=== PATIENT | male | born 1955 | race Hispanic/Latino ===

== ENCOUNTER 2017-08-24 12:44 | Emergency (ER) | payer MEDICAID ==
[2017-08-24] MEDS ORDERED: DEXAMETHASONE SOD PHOSPHATE 10MG/ML 1ML VIAL ONE ×2 (13:02→14:32)
[2017-08-24 13:41] LABS: BASOPHILS % (AUTO) 0.7 % (0.0-5.0); HEMATOCRIT 34.8 % (42-54); MEAN CORPUSCULAR HEMOGLOBIN 30.8 pg (27.0-33.0); MEAN CORPUSCULAR HGB CONC 34.8 g/dL (32.0-36.0); MEAN CORPUSCULAR VOLUME 88.5 fL (79-99); MONOCYTES % (AUTO) 7.1 % (3.0-13.0); NEUTROPHILS % (AUTO) 68.2 % (40.0-77.0); PLATELET COUNT (AUTO) 211 K/uL (130-400); RED BLOOD CELL COUNT(AUTO) 3.94 MIL/uL (4.50-6.20); RED CELL DISTRIBUTION WIDTH 13.4 % (11.0-15.5)
[2017-08-24] MEDS ORDERED: IPRATROPIUM/ALBUTEROL SULFATE 3 ML SOLUTION IH ONE (13:48)
[2017-08-24 13:50] LABS: CREATININE 1.3 mg/dL (0.5-1.5); POTASSIUM 3.5 mmol/L (3.5-5.1)
[2017-08-24 14:00] LABS: ALBUMIN 2.9 g/dL (3.5-5.0); BILIRUBIN,DIRECT 0.1 mg/dL (0.0-0.3); BILIRUBIN,TOTAL 0.3 mg/dL (0.2-1.0); TOTAL PROTEIN, SERUM 5.9 g/dL (6.0-8.3)
[2017-08-24 14:23] LABS: B-TYPE NATRIURETIC PEPTIDE 41 pg/mL (0-100)
== END 2017-08-24 16:04 | disposition home or self-care (01) ==
LOC: EDH 12:44
DX: J45.901 Unspecified asthma with (acute) exacerbation (principal)
CPT/HCPCS: 36415; 71046; 80048; 80076; 82550; 83880; 84484; 85025; 87804 ×2; 93005; 94640; 96374; 99285; J1100

== ENCOUNTER 2017-12-17 23:17 | Emergency (ER) | payer MEDICAID ==
[2017-12-17] MEDS ORDERED: TETANUS/DIPHTHERIA TOXOID [ADULT] 0.5 ML VIAL IM ONE (23:42)
[2017-12-18] MEDS ORDERED: ONDANSETRON HCL 4 MG/2 ML VIAL ONE (00:45)
[2017-12-18] MEDS ORDERED: MORPHINE SULFATE 4 MG/1ML SYG ONE (00:47)
== END 2017-12-18 00:57 | disposition home or self-care (01) ==
LOC: EDH 23:17
DX: S61.217A Laceration without foreign body of left little finger without damage to nail, initial encounter (principal); I10 Essential (primary) hypertension; E78.5 Hyperlipidemia, unspecified; W25.XXXA Contact with sharp glass, initial encounter; Y93.89 Activity, other specified; Y92.89 Other specified places as the place of occurrence of the external cause; Y99.8 Other external cause status
CPT/HCPCS: 12052; 90471; 90714; 99284; J2270; J2405

== ENCOUNTER 2019-12-21 10:32 | Emergency (ER) | payer MEDICARE ==
[~2019-12-21 10:32] MED LIST: CEFD300C3 PO; CETI10TA57 PO; FURO40TA5 PO; IBUP-2077 PO; METH10TA7 PO; METO25 PO; OMEP40CA13 PO; SIMV-46 PO
[2019-12-21] MEDS ORDERED: KETOROLAC TROMETHAMINE 60 MG/2 ML VIAL ONE (10:58)
== END 2019-12-21 15:46 | disposition home or self-care (01) ==
LOC: EDH 10:32
DX: S70.02XA Contusion of left hip, initial encounter (principal); J45.909 Unspecified asthma, uncomplicated; E78.5 Hyperlipidemia, unspecified; I10 Essential (primary) hypertension; W18.39XA Other fall on same level, initial encounter; Y93.01 Activity, walking, marching and hiking; Y92.89 Other specified places as the place of occurrence of the external cause; Y99.8 Other external cause status
CPT/HCPCS: 73502; 96372; 99283; J1885

== ENCOUNTER 2020-01-02 11:34 | Emergency (ER) | payer MEDICARE ==
[2020-01-02 13:15] LABS: RED CELL DISTRIBUTION WIDTH 13.3 % (11.0-15.5)
[2020-01-02 13:30] LABS: INR 0.89 (0.85-1.15); PARTIAL THROMBOPLASTIN TIME 21.5 SEC (26.3-35.5); PROTHROMBIN TIME 9.7 SEC (9.6-11.6)
[2020-01-02 13:36] LABS: ALBUMIN 3.3 g/dL (3.5-5.0); BILIRUBIN,TOTAL 0.5 mg/dL (0.2-1.0); CREATININE 1.6 mg/dL (0.5-1.5); TOTAL PROTEIN, SERUM 6.3 g/dL (6.0-8.3)
[2020-01-02 13:38] LABS: B-TYPE NATRIURETIC PEPTIDE 70 pg/mL (0-100)
[2020-01-02 13:42] LABS: BASOPHILS % (AUTO) 0.5 % (0.0-5.0); HEMATOCRIT 29.9 % (42-54); LYMPHOCYTES % (AUTO) 17.4 % (21.0-51.0); MEAN CORPUSCULAR HEMOGLOBIN 30.8 pg (27.0-33.0); MEAN CORPUSCULAR HGB CONC 33.1 g/dL (32.0-36.0); MEAN CORPUSCULAR VOLUME 93.1 fL (79-99); MONOCYTES % (AUTO) 7.1 % (3.0-13.0); NEUTROPHILS % (AUTO) 71.7 % (40.0-77.0); PLATELET COUNT (AUTO) 233 K/uL (130-400); RED BLOOD CELL COUNT(AUTO) 3.21 MIL/uL (4.50-6.20); WHITE BLOOD COUNT (AUTO) 6.6 K/uL (4.8-10.8)
== END 2020-01-02 15:05 | disposition left against medical advice (07) ==
LOC: EDH 11:34
DX: S70.02XA Contusion of left hip, initial encounter (principal); S80.12XA Contusion of left lower leg, initial encounter; I21.4 Non-ST elevation (NSTEMI) myocardial infarction; E78.5 Hyperlipidemia, unspecified; I10 Essential (primary) hypertension; J45.909 Unspecified asthma, uncomplicated; E07.9 Disorder of thyroid, unspecified; Z87.891 Personal history of nicotine dependence; W18.39XA Other fall on same level, initial encounter; Y93.89 Activity, other specified; Y92.89 Other specified places as the place of occurrence of the external cause; Y99.8 Other external cause status
CPT/HCPCS: 36415; 71045; 72170; 73552; 73562; 73590; 73630; 80053; 82550; 83880; 84484; 85025; 85610; 85730; 93005

== ENCOUNTER 2020-01-21 16:14 | Observation (INO) | payer MEDICARE ==
[~2020-01-21] VITALS: Ht 157.5 cm; Wt 71.7 kg
[2020-01-21] MEDS ORDERED: ACETAMINOPHEN 325 MG TAB ONE (17:39)
[2020-01-21] MEDS ORDERED: ASPIRIN 325 MG TABLET ONE (18:50)
[2020-01-21] MEDS ORDERED: AZITHROMYCIN 250 MG TABLET PO ONE (18:50)
[2020-01-21] MEDS ORDERED: SODIUM CHLORIDE 0.9% 10 ML VIAL IVP PRN (19:45)
[2020-01-21] MEDS ORDERED: PHARMACY COMMUNICATION MISC SCH ×2 (19:45)
[2020-01-21] MEDS ORDERED: MORPHINE SULFATE 2 MG/ML 1ML SYG IVP PRN (19:45)
[2020-01-21] MEDS ORDERED: ONDANSETRON HCL 4 MG/2 ML VIAL IVP PRN (19:45)
[2020-01-21] MEDS ORDERED: CEFTRIAXONE SODIUM 1 GM IVP SCH (20:00)
[2020-01-21] MEDS ORDERED: PREDNISONE 10 MG TABLET ONE (20:37)
[2020-01-21] MEDS ORDERED: ATORVASTATIN CALCIUM 40 MG TABLET ONE (20:37)
[2020-01-21] MEDS ORDERED: METOPROLOL TARTRATE 50 MG TAB ONE (20:37)
[2020-01-21] MEDS ORDERED: CEFTRIAXONE SODIUM 1 GM ONE (20:59)
[2020-01-21] MEDS ORDERED: SODIUM CHLORIDE 0.9% 50 ML IV ONE (21:00)
[2020-01-21] MEDS ORDERED: METOPROLOL TARTRATE 25 MG TAB PO SCH (21:00)
[2020-01-22] MEDS ORDERED: ATORVASTATIN CALCIUM 40 MG TABLET PO SCH (09:00)
[2020-01-22] MEDS ORDERED: ASPIRIN 81MG TAB.CHEW PO SCH (09:00)
[2020-01-22] MEDS ORDERED: METOPROLOL TARTRATE 25 MG TAB ONE (11:36)
[2020-01-22] MEDS ORDERED: ASPIRIN 81MG TAB.CHEW ONE (11:36)
[2020-01-22] MEDS ORDERED: PREDNISONE 10 MG TABLET ONE (11:37)
[2020-01-22] MEDS ORDERED: AZITHROMYCIN 250 MG TABLET PO ONE (17:47)
[2020-01-22] MEDS ORDERED: AZITHROMYCIN 250 MG TABLET PO SCH (18:00)
[2020-01-22] MEDS ORDERED: ATORVASTATIN CALCIUM 40 MG TABLET ONE (20:11)
[2020-01-22] MEDS ORDERED: LIDOCAINE HCL-MPF 1% 2ML VIAL ONE (20:12)
[2020-01-22] MEDS ORDERED: CEFTRIAXONE SODIUM 1 GM ONE (20:12)
[2020-01-23] MEDS ORDERED: PREDNISONE 10 MG TABLET ONE (08:44)
[2020-01-23] MEDS ORDERED: METOPROLOL TARTRATE 25 MG TAB ONE (08:44)
[2020-01-23] MEDS ORDERED: ASPIRIN 81MG TAB.CHEW ONE (08:44)
[2020-01-23] MEDS ORDERED: PREDNISONE 1 MG TAB PO SCH (09:00)
[2020-01-23] MEDS ORDERED: PREDNISONE 5 MG TABLET PO SCH (09:00)
--- NOTE | 2020-01-23 11:43 | NUR ---
history of thyroid problems Addendum: 01/23/20 at 1156 by MAURICIO HOPSON RN RN Amended: Links added.
--- NOTE | 2020-01-23 11:45 | NUR ---
uses walker has fall at home Addendum: 01/23/20 at 1156 by MAURICIO HOPSON RN RN Amended: Links added.
[2020-01-23] MEDS ORDERED: ENOXAPARIN SODIUM 80 MG/0.8 ML SQ SCH (12:00)
== END 2020-01-23 12:20 | disposition home or self-care (01) ==
LOC: EDH 16:14 → INTOOBSV 18:38 → EDHIP 18:38
PROVIDERS: ADMIT Internal Medicine Infectious Disease; ATTEND Internal Medicine Infectious Disease
DX: U07.1 COVID-19 (principal); I20.9 Angina pectoris, unspecified; J12.89 Other viral pneumonia; I11.0 Hypertensive heart disease with heart failure; I50.9 Heart failure, unspecified; E78.5 Hyperlipidemia, unspecified; E03.9 Hypothyroidism, unspecified; N28.89 Other specified disorders of kidney and ureter; R53.81 Other malaise; J45.909 Unspecified asthma, uncomplicated; Z79.899 Other long term (current) drug therapy
CPT/HCPCS: 36415 ×2; 71045; 80048; 80053; 82550; 82728; 83735; 84145; 84484 ×3; 85025; 85027; 85378; 85610; 85651; 85730; 86140; 87040 ×2; 93005; 99285; G0378 ×41; J0696 ×2; J3490; J7512 ×5; U0003

== ENCOUNTER 2020-03-24 08:50 | Inpatient (IN) | payer MEDICARE ==
[~2020-03-24] VITALS: Ht 154.9 cm; Wt 67.0 kg
[2020-03-24 09:11] LABS: BASOPHILS % (AUTO) 0.9 % (0.0-5.0); EOSINOPHILS % (AUTO) 4.1 % (0.0-8.0); HEMATOCRIT 35.6 % (42-54); LYMPHOCYTES % (AUTO) 24.4 % (21.0-51.0); MEAN CORPUSCULAR HEMOGLOBIN 31.2 pg (27.0-33.0); MEAN CORPUSCULAR HGB CONC 34.8 g/dL (32.0-36.0); MEAN CORPUSCULAR VOLUME 89.7 fL (79-99); MONOCYTES % (AUTO) 5.8 % (3.0-13.0); NEUTROPHILS % (AUTO) 64.6 % (40.0-77.0); PLATELET COUNT (AUTO) 277 K/uL (130-400); RED BLOOD CELL COUNT(AUTO) 3.97 MIL/uL (4.50-6.20); WHITE BLOOD COUNT (AUTO) 6.6 K/uL (4.8-10.8)
[2020-03-24 09:21] LABS: CREATININE 2.8 mg/dL (0.5-1.5); POTASSIUM 3.3 mmol/L (3.5-5.1)
[2020-03-24 09:25] LABS: INR 0.92 (0.85-1.15); PARTIAL THROMBOPLASTIN TIME 25.8 SEC (26.3-35.5)
[2020-03-24 09:26] LABS: ALBUMIN 3.9 g/dL (3.5-5.0); BILIRUBIN,TOTAL 0.5 mg/dL (0.2-1.0)
[2020-03-24] MEDS ORDERED: NITROGLYCERIN 0.4 MG SL TAB SL ONE (09:37)
[2020-03-24] MEDS ORDERED: ASPIRIN 325 MG TABLET ONE (09:37)
[2020-03-24] MEDS ORDERED: POTASSIUM BICARB/CIT AC 25 MEQ TABLET.EFF ONE (09:50)
[2020-03-24] MEDS ORDERED: SODIUM CHLORIDE 0.9% 500ML 500 ML IV ONE ×2 (09:50→11:15)
[2020-03-24] MEDS ORDERED: MORPHINE SULFATE 4 MG/1ML SYG ONE (12:02)
[2020-03-24] MEDS ORDERED: ONDANSETRON HCL 4 MG/2 ML VIAL IVP PRN (12:15)
[2020-03-24] MEDS ORDERED: HYDRALAZINE HCL 20 MG/ML VIAL IV PRN (12:15)
[2020-03-24] MEDS ORDERED: ALBUTEROL INHALER 90MCG/INH IH PRN (12:45)
[2020-03-24 14:00] VITALS: BP 168/85
[2020-03-24] MEDS: HEPARIN SODIUM 5000UNIT/ML 1ML VIAL SQ SCH ×2 (14:00→21:10)
--- NOTE | 2020-03-24 14:00 | NUR ---
ADMISSION FROM . ER. PER SERVICES OF DR. MADSEN, PT AAO X 3 REVIEW ADMISSION ORDERS , DENIES ANY CHEST PAIN, TELE. MONITOR ON . AND CALL LIGHT IN REACH..
[2020-03-24 15:11] VITALS: BP 168/85
[2020-03-24] MEDS ORDERED: FAMO40TA7 PO (15:11)
[2020-03-24] MEDS ORDERED: LOSA50TA64 PO (15:11)
[2020-03-24] MEDS ORDERED: LORA10TA7 PO (15:11)
[2020-03-24] MEDS ORDERED: BENZ-51 PO (15:11)
[2020-03-24] MEDS ORDERED: METH10TA7 PO (15:11)
[2020-03-24] MEDS ORDERED: IBUP-2076 PO (15:11)
[2020-03-24] MEDS ORDERED: TIOT4MIS5 IH (15:12)
[2020-03-24] MEDS ORDERED: FURO40TA5 PO (15:12)
[2020-03-24] MEDS ORDERED: FLUT8AER3 IH (15:12)
[2020-03-24 16:00] VITALS: BP 153/74
[2020-03-24] MEDS: LACTATED RINGERS 1000ML 1,000 ML IV SCH (18:10)
[2020-03-24 19:39] VITALS: BP 149/87
[2020-03-24] MEDS: FAMOTIDINE 20MG TAB 20 MG TAB PO SCH (21:10)
[2020-03-24] MEDS: MORPHINE SULFATE 4 MG/1ML SYG IV PRN (21:59)
[2020-03-25 00:06] VITALS: BP 164/69
[2020-03-25 04:05] VITALS: BP 121/56
[2020-03-25 04:56] LABS: EOSINOPHILS % (AUTO) 4.1 % (0.0-8.0); HEMATOCRIT 33.8 % (42-54); LYMPHOCYTES % (AUTO) 26.1 % (21.0-51.0); MEAN CORPUSCULAR HGB CONC 33.4 g/dL (32.0-36.0); MEAN CORPUSCULAR VOLUME 92.6 fL (79-99); MONOCYTES % (AUTO) 8.7 % (3.0-13.0); NEUTROPHILS % (AUTO) 59.9 % (40.0-77.0); PLATELET COUNT (AUTO) 244 K/uL (130-400); RED BLOOD CELL COUNT(AUTO) 3.65 MIL/uL (4.50-6.20); RED CELL DISTRIBUTION WIDTH 13.3 % (11.0-15.5); WHITE BLOOD COUNT (AUTO) 6.3 K/uL (4.8-10.8)
[2020-03-25 05:12] LABS: CREATININE 1.7 mg/dL (0.5-1.5); POTASSIUM 3.8 mmol/L (3.5-5.1)
[2020-03-25 08:00] VITALS: BP 143/65
[2020-03-25] MEDS: LACTATED RINGERS 1000ML 1,000 ML IV SCH (09:00)
[2020-03-25] MEDS: FAMOTIDINE 20MG TAB 20 MG TAB PO SCH ×2 (09:51→19:50)
[2020-03-25] MEDS: HEPARIN SODIUM 5000UNIT/ML 1ML VIAL SQ SCH ×3 (09:53→19:51)
[2020-03-25 11:32] VITALS: BP 128/53
[2020-03-25 16:00] VITALS: BP 151/62
[2020-03-25 18:13] LABS: APPEARANCE,URINE Clear (CLEAR); BILIRUBIN,URINE Negative (NEGATIVE); COLOR,URINE Yellow (YELLOW); GLUCOSE, URINE (UA) Negative (NEGATIVE); KETONES,URINE Negative (NEGATIVE); LEUKOCYTE ESTERASE ,URINE Negative (NEGATIVE); NITRATE,URINE Negative (NEGATIVE); OCCULT BLOOD,URINE Negative (NEGATIVE); PROTEIN,URINE POS 1+ mg/dL (NEGATIVE); UROBILINOGEN,URINE 0.2 mg/dL (0.2-1.0)
[2020-03-25 18:29] LABS: BACTERIA,URINE Rare /HPF (None Seen); MUCUS,URINE Few LPF (None Seen); RBC,URINE 0-1 /HPF (0-1); SQUAMOUS EPITHELIAL CELL,UR 0-2 /HPF (0-2)
[2020-03-25] MEDS: MORPHINE SULFATE 4 MG/1ML SYG IV PRN (18:36)
--- NOTE | 2020-03-25 19:50 | NUR ---
MEDS SHIFT ASSESSMENT DONE, PLEASE REFER TO CHART. DUE MEDS ADMINISTERED, TOLERATED WELL. CALL LIGHT WITHIN REACH. WILL MONITOR PT. Addendum: 03/25/20 at 2045 by NATALIE CARTER RN RN Amended: Links added.
[2020-03-25 20:00] VITALS: BP 145/55
--- NOTE | 2020-03-25 20:40 | NUR ---
SANDHYA GUERRA NP FOR HOSPITALIST, MAKING ROUNDS. REFERRED PT'S COUGH AND HOME MEDS. NEW MED ORDERS RECEIVED, PLEASE REFER TO CPOE. WILL MEDICATE PT.
[2020-03-25] MEDS: BENZONATATE 100 MG CAPSULE PO PRN (21:11)
[2020-03-25] MEDS: METHIMAZOLE 10 MG TAB PO SCH (21:11)
--- NOTE | 2020-03-25 22:01 | NUR ---
Patient pending PCR results ;meanwhile his MDI has been given to him by KEY Moss. Addendum: 03/25/20 at 2204 by MARY RAM RT Amended: Links added.
--- NOTE | 2020-03-25 23:03 | NUR ---
CALL PT CALLED AND CLAIMS OF INABILITY TO GO TO SLEEP, ASKING FOR SLEEPING PILL. PAGED SANDHYA GUERRA FOR HOSPITALIST VIA ANSWERING SERVICE. AWAITING CALL BACK.
--- NOTE | 2020-03-25 23:10 | NUR ---
SANDHYA GUERRA CALLED BACK AND REFERRED PT'S REQUEST. NEW MED ORDER GIVEN, PLEASE REFER TO CPOE. WILL MEDICATE PT.
[2020-03-25] MEDS ORDERED: HYDROXYZINE HCL 25 MG TABLET PO PRN (23:15)
[2020-03-25] MEDS: ALBUTEROL SULFATE 0.083% 2.5 MG/3 ML INH IH SCH (23:19)
[2020-03-25] MEDS ORDERED: HYDROXYZINE HCL 25 MG TABLET ONE (23:19)
[2020-03-25] MEDS: IPRATROPIUM 0.5 MG/2.5 ML INH IH SCH (23:19)
[2020-03-26] VITALS: BP_SYST 126; BP_SYST 145; BP_DIAS 64; BP_DIAS 75
--- NOTE | 2020-03-26 01:42 | NUR ---
ROUNDS PT FAIRLY ASLEEP WITH RESPIRATIONS EVEN AND UNLABORED. NO DISTRESS NOTED. KEPT RESTED AND COMFORTABLE. CALL LIGHT WITHIN REACH. WILL MONITOR PT.
[2020-03-26 04:00] VITALS: BP 150/61
[2020-03-26] MEDS: LACTATED RINGERS 1000ML 1,000 ML IV SCH (04:14)
[2020-03-26 05:07] LABS: T4 (THYROXINE) 7.5 ug/dL (4.7-13.3); THYROID STIMULATING HORMONE 0.44 uIU/mL (0.36-3.74)
[2020-03-26] MEDS: BUDESONIDE 0.5 MG/2 ML INH IH SCH ×2 (06:00→18:00)
[2020-03-26] MEDS: IPRATROPIUM 0.5 MG/2.5 ML INH IH SCH ×2 (06:00→12:00)
--- NOTE | 2020-03-26 06:14 | NUR ---
ROUNDS PT RESTING WELL, STILL ASLEEP. NO DISTRESS NOTED. KEPT COMFORTABLE IN BED. FOR MORE CARE.
[2020-03-26 08:00] VITALS: BP 150/72
--- NOTE | 2020-03-26 08:00 | NUR ---
AM SHIFT ASSESSMENT.
[2020-03-26] MEDS: FUROSEMIDE 40 MG TABLET PO SCH (09:26)
[2020-03-26] MEDS: LOSARTAN 50 MG TABLET PO SCH (09:26)
[2020-03-26] MEDS: FAMOTIDINE 20MG TAB 20 MG TAB PO SCH ×2 (09:26→20:49)
[2020-03-26] MEDS: LORATADINE 10 MG TABLET PO SCH (09:26)
[2020-03-26] MEDS: HEPARIN SODIUM 5000UNIT/ML 1ML VIAL SQ SCH ×3 (09:33→20:50)
[2020-03-26] MEDS: MORPHINE SULFATE 4 MG/1ML SYG IV PRN (10:40)
--- NOTE | 2020-03-26 10:40 | NUR ---
MEDICATED FOR PAIN TO LT. UPPER BACK.
[2020-03-26 11:39] VITALS: BP 166/64
[2020-03-26] MEDS: ALBUTEROL SULFATE 0.083% 2.5 MG/3 ML INH IH SCH (12:00)
[2020-03-26 16:00] VITALS: BP 141/60
--- NOTE | 2020-03-26 16:56 | NUR ---
DCP IA done by Matt Kyle RN. As per Matt spoke to daughter on facesheet discussed dc plans. As per daughter pt is independent prior to admission, lives at home alone, daughter lives close by. Pt has a cane. Denies any other equipments/services. Feels safe to go back home, still drives, daughter and son Devan Nascimento able to assist with transportation and needs as necessary. DC plan to home once stable. CM to cont to follow up. Addendum: 03/26/20 at 1658 by BRITTANY PAT LVN CM Amended: Links added.
[2020-03-26] MEDS ORDERED: SIMVASTATIN 10 MG TABLET ONE (19:22)
[2020-03-26 20:00] VITALS: BP 134/56
[2020-03-26] MEDS: SIMVASTATIN 10 MG TABLET PO SCH (20:48)
[2020-03-26] MEDS: METHIMAZOLE 10 MG TAB PO SCH (20:49)
[2020-03-27] VITALS: BP 145/64
[2020-03-27] MEDS: MORPHINE SULFATE 4 MG/1ML SYG IV PRN (02:50)
[2020-03-27 04:00] VITALS: BP 120/66
[2020-03-27 08:32] VITALS: BP 150/72
[2020-03-27] MEDS: FUROSEMIDE 40 MG TABLET PO SCH (10:16)
[2020-03-27] MEDS: LORATADINE 10 MG TABLET PO SCH (10:16)
[2020-03-27] MEDS: FAMOTIDINE 20MG TAB 20 MG TAB PO SCH ×2 (10:17→20:28)
[2020-03-27] MEDS: LOSARTAN 50 MG TABLET PO SCH (10:17)
[2020-03-27] MEDS: HEPARIN SODIUM 5000UNIT/ML 1ML VIAL SQ SCH ×3 (10:55→20:27)
--- NOTE | 2020-03-27 12:02 | NUR ---
DR. YUEN AWARE OF CONSULT ORDERS ENTERED FOR ECHO AND LEXISCAN.
[2020-03-27 12:16] VITALS: BP 158/70
[2020-03-27] MEDS: ASPIRIN 81MG TAB.CHEW PO SCH (16:37)
[2020-03-27 17:41] VITALS: BP 112/59
[2020-03-27 19:27] VITALS: BP 114/54
[2020-03-27] MEDS: SIMVASTATIN 10 MG TABLET PO SCH (20:21)
[2020-03-27] MEDS: METHIMAZOLE 10 MG TAB PO SCH (20:28)
[2020-03-28] VITALS (8 sets, daily range): BP systolic 128–202; BP diastolic 56–82
[2020-03-28 04:03] LABS: BASOPHILS % (AUTO) 0.5 % (0.0-5.0); EOSINOPHILS % (AUTO) 5.9 % (0.0-8.0); HEMATOCRIT 31.8 % (42-54); LYMPHOCYTES % (AUTO) 34.5 % (21.0-51.0); MEAN CORPUSCULAR HEMOGLOBIN 30.5 pg (27.0-33.0); MEAN CORPUSCULAR HGB CONC 33.3 g/dL (32.0-36.0); MEAN CORPUSCULAR VOLUME 91.4 fL (79-99); MONOCYTES % (AUTO) 8.7 % (3.0-13.0); NEUTROPHILS % (AUTO) 50.2 % (40.0-77.0); PLATELET COUNT (AUTO) 218 K/uL (130-400); RED BLOOD CELL COUNT(AUTO) 3.48 MIL/uL (4.50-6.20); RED CELL DISTRIBUTION WIDTH 12.7 % (11.0-15.5); WHITE BLOOD COUNT (AUTO) 4.3 K/uL (4.8-10.8)
[2020-03-28 04:17] LABS: CREATININE 1.6 mg/dL (0.5-1.5)
[2020-03-28] MEDS: MORPHINE SULFATE 4 MG/1ML SYG IV PRN ×2 (06:44→21:04)
[2020-03-28] MEDS: FUROSEMIDE 40 MG TABLET PO SCH (09:23)
[2020-03-28] MEDS: ASPIRIN 81MG TAB.CHEW PO SCH (09:23)
[2020-03-28] MEDS: FAMOTIDINE 20MG TAB 20 MG TAB PO SCH ×2 (09:23→21:08)
[2020-03-28] MEDS: LORATADINE 10 MG TABLET PO SCH (09:23)
[2020-03-28] MEDS: LOSARTAN 50 MG TABLET PO SCH (09:30)
[2020-03-28] MEDS: HEPARIN SODIUM 5000UNIT/ML 1ML VIAL SQ SCH ×3 (09:37→21:14)
--- NOTE | 2020-03-28 12:04 | NUR ---
PT ANXIOUS; REFUSING 2D ECHO MINUTES LATER HE APOLOGIZED STATING THAT NOW HE WANTS IT DONE, 2D NEWS ASSISTANT AWARE. GOT AN ORDER FOR XANAX PO WILL GIVE.
[2020-03-28] MEDS ORDERED: ALPRAZOLAM 0.25 MG TABLET ONE (12:21)
[2020-03-28] MEDS: BENZONATATE 100 MG CAPSULE PO PRN (12:23)
[2020-03-28] MEDS ORDERED: ALPRAZOLAM 0.25 MG TABLET PO ONE (13:20)
[2020-03-28] MEDS ORDERED: REGADENOSON 0.4 MG/5 ML PF SYG IVP SCH (15:30)
[2020-03-28] MEDS: SIMVASTATIN 10 MG TABLET PO SCH (21:08)
[2020-03-28] MEDS: METHIMAZOLE 10 MG TAB PO SCH (21:08)
[2020-03-29 03:55] VITALS: BP 137/59
[2020-03-29] MEDS: BUDESONIDE 0.5 MG/2 ML INH IH SCH (06:00)
[2020-03-29] MEDS: IPRATROPIUM 0.5 MG/2.5 ML INH IH SCH ×2 (06:00→12:00)
[2020-03-29] MEDS: ALBUTEROL SULFATE 0.083% 2.5 MG/3 ML INH IH SCH ×3 (06:00→12:00)
[2020-03-29 08:00] VITALS: BP 144/82
[2020-03-29] MEDS: FAMOTIDINE 20MG TAB 20 MG TAB PO SCH (08:37)
[2020-03-29] MEDS: ASPIRIN 81MG TAB.CHEW PO SCH (08:37)
[2020-03-29] MEDS: LOSARTAN 50 MG TABLET PO SCH (08:37)
[2020-03-29] MEDS: LORATADINE 10 MG TABLET PO SCH (08:37)
[2020-03-29] MEDS: FUROSEMIDE 40 MG TABLET PO SCH (08:37)
[2020-03-29] MEDS: HEPARIN SODIUM 5000UNIT/ML 1ML VIAL SQ SCH (08:42)
[2020-03-29 11:35] VITALS: BP 145/67
[2020-03-29] MEDS ORDERED: ATOR10 PO (11:59)
[2020-03-29] MEDS ORDERED: ASPI-1005 PO (11:59)
[2020-03-29] MEDS: MORPHINE SULFATE 4 MG/1ML SYG IV PRN (12:24)
--- NOTE | 2020-03-29 12:35 | NUR ---
notified cassandra grey gave patient morphine per prn regarding patient had been pacing back and forth c/o sob back pain and anxiety,stated doesn't feel good. 02 sat 96%in ra. also ler her know was anjel pending vqscan but wont be able to be done until 2 days after lexiscan ,per dept. pending call back
[2020-03-29] MEDS ORDERED: ALPRAZOLAM 0.5 MG TABLET PO SCH (12:45)
--- NOTE | 2020-03-29 13:00 | NUR ---
call back from cassandra puente to follow up on message left with cassandra grey. also ler her know on patient c/o of sob,pacing ,anxiety and stating feelings like something stuck in chest per patient and cant cough out ,back pain. alsolet her know there is an order for vqscan but cant be done till 2 days after lexiscan. per filter washer and presser no need for vqscan .new order for xanax x 1 dose ,and to monitor patient before dc home
[2020-03-29] MEDS ORDERED: ALPRAZOLAM 0.5 MG TABLET PO PRN (16:00)
[2020-03-29 16:28] VITALS: BP 159/67
== END 2020-03-29 19:00 | disposition home or self-care (01) | DRG 683 ==
LOC: EDH 08:50 → 3BH 11:58
PROVIDERS: ADMIT Hospitalist; ATTEND Hospitalist
DX: N17.9 Acute kidney failure, unspecified (principal); I25.110 Atherosclerotic heart disease of native coronary artery with unstable angina pectoris; I13.0 Hypertensive heart and chronic kidney disease with heart failure and stage 1 through stage 4 chronic kidney disease, or unspecified chronic kidney disease; I50.30 Unspecified diastolic (congestive) heart failure; E05.90 Thyrotoxicosis, unspecified without thyrotoxic crisis or storm; J40 Bronchitis, not specified as acute or chronic; E78.5 Hyperlipidemia, unspecified; Z20.828 Contact with and (suspected) exposure to other viral communicable diseases; E78.00 Pure hypercholesterolemia, unspecified; N18.9 Chronic kidney disease, unspecified; E11.22 Type 2 diabetes mellitus with diabetic chronic kidney disease; D64.9 Anemia, unspecified; F41.9 Anxiety disorder, unspecified; Z79.82 Long term (current) use of aspirin; Z79.899 Other long term (current) drug therapy; Z83.3 Family history of diabetes mellitus
CPT/HCPCS: 36415; 71045; 72072; 76770; 78452; 80048; 80053; 80061; 81001; 82550; 82570; 83690; 83880; 84436; 84443; 84484; 84540; 85025; 85610; 85730; 87426; 93005; 93017; 93306; 93356; 94664; 96374; A9500; G0378; J0360; J1644; J2270; J2785; J7040; J7120; U0003

== ENCOUNTER 2020-05-08 14:13 | Emergency (ER) | payer MEDICARE ==
[~2020-05-08 14:13] MED LIST changes: +ASPI-1005 PO; +ATOR10 PO; +BENZ-51 PO; -CEFD300C3 PO; -CETI10TA57 PO; +FAMO40TA7 PO; +FLUT8AER3 IH; +IBUP-2076 PO; -IBUP-2077 PO; +LORA10TA7 PO; +LOSA50TA64 PO; -METO25 PO; -OMEP40CA13 PO; -SIMV-46 PO; +TIOT4MIS5 IH
[2020-05-08] MEDS ORDERED: ASPIRIN 325 MG TABLET ONE (15:11)
[2020-05-08 16:09] LABS: BASOPHILS % (AUTO) 0.2 % (0.0-5.0); HEMATOCRIT 31.5 % (42-54); LYMPHOCYTES % (AUTO) 9.5 % (21.0-51.0); MEAN CORPUSCULAR HEMOGLOBIN 31.6 pg (27.0-33.0); MEAN CORPUSCULAR HGB CONC 34.3 g/dL (32.0-36.0); MEAN CORPUSCULAR VOLUME 92.1 fL (79-99); MONOCYTES % (AUTO) 2.6 % (3.0-13.0); NEUTROPHILS % (AUTO) 87.2 % (40.0-77.0); PLATELET COUNT (AUTO) 281 K/uL (130-400); RED BLOOD CELL COUNT(AUTO) 3.42 MIL/uL (4.50-6.20); RED CELL DISTRIBUTION WIDTH 13.2 % (11.0-15.5); WHITE BLOOD COUNT (AUTO) 8.6 K/uL (4.8-10.8)
[2020-05-08 16:12] LABS: CREATININE 1.9 mg/dL (0.5-1.5)
[2020-05-08 16:17] LABS: APPEARANCE,URINE Clear (CLEAR); BILIRUBIN,URINE Negative (NEGATIVE); COLOR,URINE Yellow (YELLOW); GLUCOSE, URINE (UA) TRACE mg/dL (NEGATIVE); KETONES,URINE Negative (NEGATIVE); LEUKOCYTE ESTERASE ,URINE Negative (NEGATIVE); NITRATE,URINE Negative (NEGATIVE); OCCULT BLOOD,URINE Negative (NEGATIVE); PROTEIN,URINE POS 2+ mg/dL (NEGATIVE); UROBILINOGEN,URINE 0.2 mg/dL (0.2-1.0)
[2020-05-08 16:27] LABS: BACTERIA,URINE Rare /HPF (None Seen); RBC,URINE 0-1 /HPF (0-1); WBC,URINE 0-1 /HPF (0-1)
[2020-05-08 16:28] LABS: SQUAMOUS EPITHELIAL CELL,UR Rare /HPF (0-2)
[2020-05-08 16:31] LABS: ALANINE AMINOTRANSFERASE 15 U/L (12-78); ALBUMIN 3.8 g/dL (3.5-5.0); ASPARTATE AMINOTRANSFERASE 18 U/L (10-37); BILIRUBIN,TOTAL 0.3 mg/dL (0.2-1.0); TOTAL PROTEIN, SERUM 6.9 g/dL (6.0-8.3)
[2020-05-08 16:33] LABS: B-TYPE NATRIURETIC PEPTIDE 187 pg/mL (0-100)
[2020-05-08 16:41] LABS: BILIRUBIN,DIRECT < 0.1 mg/dL (0.0-0.3)
== END 2020-05-08 17:23 | disposition home or self-care (01) ==
LOC: EDH 14:13
DX: J98.01 Acute bronchospasm (principal); I12.9 Hypertensive chronic kidney disease with stage 1 through stage 4 chronic kidney disease, or unspecified chronic kidney disease; N18.9 Chronic kidney disease, unspecified; J45.909 Unspecified asthma, uncomplicated; E78.5 Hyperlipidemia, unspecified; E07.9 Disorder of thyroid, unspecified; Z86.19 Personal history of other infectious and parasitic diseases
CPT/HCPCS: 36415; 71045; 80048; 80076; 81001; 83880; 84484; 85025; 93005

== ENCOUNTER 2020-06-17 17:27 | Observation (INO) | payer MEDICARE ==
[~2020-06-17] VITALS: Ht 154.9 cm; Wt 66.5 kg
[2020-06-17 18:28] LABS: BASOPHILS % (AUTO) 0.8 % (0.0-5.0); EOSINOPHILS % (AUTO) 4.9 % (0.0-8.0); HEMATOCRIT 27.1 % (42-54); MEAN CORPUSCULAR HEMOGLOBIN 32.4 pg (27.0-33.0); MEAN CORPUSCULAR HGB CONC 33.6 g/dL (32.0-36.0); MEAN CORPUSCULAR VOLUME 96.4 fL (79-99); MONOCYTES % (AUTO) 11.1 % (3.0-13.0); NEUTROPHILS % (AUTO) 59.8 % (40.0-77.0); PLATELET COUNT (AUTO) 221 K/uL (130-400); RED BLOOD CELL COUNT(AUTO) 2.81 MIL/uL (4.50-6.20); RED CELL DISTRIBUTION WIDTH 13.9 % (11.0-15.5); WHITE BLOOD COUNT (AUTO) 5.3 K/uL (4.8-10.8)
[2020-06-17 18:50] LABS: CREATININE 1.8 mg/dL (0.5-1.5)
[2020-06-17 18:54] LABS: INR 0.91 (0.85-1.15); PARTIAL THROMBOPLASTIN TIME 25.8 SEC (26.3-35.5); PROTHROMBIN TIME 9.9 SEC (9.6-11.6)
[2020-06-17 18:55] LABS: ALBUMIN 3.7 g/dL (3.5-5.0); BILIRUBIN,TOTAL 0.3 mg/dL (0.2-1.0); TOTAL PROTEIN, SERUM 6.8 g/dL (6.0-8.3)
[2020-06-17] MEDS ORDERED: ASPIRIN 81MG TAB.CHEW ONE (19:51)
[2020-06-17] MEDS ORDERED: IPRATROPIUM/ALBUTEROL SULFATE 3 ML SOLUTION IH ONE (19:59)
[2020-06-17 20:05] LABS: APPEARANCE,URINE Clear (CLEAR); BILIRUBIN,URINE Negative (NEGATIVE); COLOR,URINE Yellow (YELLOW); GLUCOSE, URINE (UA) Negative (NEGATIVE); KETONES,URINE Negative (NEGATIVE); LEUKOCYTE ESTERASE ,URINE Negative (NEGATIVE); NITRATE,URINE Negative (NEGATIVE); OCCULT BLOOD,URINE Trace (NEGATIVE); PROTEIN,URINE POS 2+ mg/dL (NEGATIVE); UROBILINOGEN,URINE 0.2 mg/dL (0.2-1.0)
[2020-06-17 20:32] LABS: WBC,URINE 0-1 /HPF (0-1)
[2020-06-17 20:33] LABS: BACTERIA,URINE Rare /HPF (None Seen)
[2020-06-17 20:35] LABS: SQUAMOUS EPITHELIAL CELL,UR Few /HPF (0-2)
[2020-06-17 20:37] LABS: MUCUS,URINE Few LPF (None Seen)
[2020-06-17] MEDS ORDERED: METHYLPREDNISOLONE SOD SUCC 125MG/2ML VIAL ONE ×2 (22:53→23:07)
[2020-06-17] MEDS ORDERED: ONDANSETRON HCL 4 MG/2 ML VIAL IV PRN (23:45)
[2020-06-17] MEDS ORDERED: ACETAMINOPHEN 325 MG TAB PO PRN (23:45)
[2020-06-17] MEDS ORDERED: LACTULOSE 20 GM/30 ML UDCUP PO PRN (23:45)
[2020-06-18] MEDS ORDERED: IPRATROPIUM/ALBUTEROL SULFATE 3 ML SOLUTION IH ONE ×2 (01:43→06:18)
[2020-06-18] MEDS: IPRATROPIUM/ALBUTEROL SULFATE 3 ML SOLUTION IH SCH ×4 (01:45→18:33)
[2020-06-18 06:22] LABS: BASOPHILS % (AUTO) 0.7 % (0.0-5.0); EOSINOPHILS % (AUTO) 1.8 % (0.0-8.0); HEMATOCRIT 27.6 % (42-54); LYMPHOCYTES % (AUTO) 14.7 % (21.0-51.0); MEAN CORPUSCULAR HEMOGLOBIN 32.2 pg (27.0-33.0); MEAN CORPUSCULAR HGB CONC 33.7 g/dL (32.0-36.0); MEAN CORPUSCULAR VOLUME 95.5 fL (79-99); MONOCYTES % (AUTO) 1.6 % (3.0-13.0); PLATELET COUNT (AUTO) 213 K/uL (130-400); RED BLOOD CELL COUNT(AUTO) 2.89 MIL/uL (4.50-6.20); RED CELL DISTRIBUTION WIDTH 13.7 % (11.0-15.5); WHITE BLOOD COUNT (AUTO) 4.3 K/uL (4.8-10.8)
[2020-06-18 07:16] LABS: CREATININE 1.6 mg/dL (0.5-1.5); POTASSIUM 4.1 mmol/L (3.5-5.1)
[2020-06-18 08:30] VITALS: BP 151/86
--- NOTE | 2020-06-18 08:45 | NUR ---
ARRIVAL TO FLOOR PT IS AAOX3 DENIES CP DENIES SOB DENIES NV AT THIS TIME. BREATHING PATTERN IS EVEN AND UNLABORED. ARRIVED WITH ORDERS CALL LIGHT WITHIN REACH.
[2020-06-18] MEDS ORDERED: ASPIRIN 81MG TAB.CHEW PO SCH (09:00)
[2020-06-18] MEDS: ADVAIR IH SCH (09:00)
[2020-06-18] MEDS: ASPIRIN 81MG TAB.CHEW PO SCH (09:13)
[2020-06-18] MEDS: FAMOTIDINE 20MG TAB 20 MG TAB PO SCH ×2 (09:14→21:01)
[2020-06-18] MEDS: FUROSEMIDE 40 MG TABLET PO SCH (09:14)
[2020-06-18] MEDS: METOPROLOL TARTRATE 25 MG TAB PO SCH ×2 (09:14→21:01)
[2020-06-18] MEDS ORDERED: DOXYCYCLINE HYCLATE 100 MG TABLET PO SCH (10:30)
[2020-06-18] MEDS: DOXYCYCLINE HYCLATE 100 MG TABLET PO SCH ×2 (10:50→21:01)
--- NOTE | 2020-06-18 11:10 | NUR ---
DR Carmen ISAACS ROUNDED SAW PATIENT, ORDERS RECEIVED
[2020-06-18 12:08] VITALS: BP 149/72
[2020-06-18] MEDS: ACETAMINOPHEN 325 MG TAB PO PRN ×2 (16:00→23:12)
[2020-06-18 16:30] VITALS: BP 136/62
[2020-06-18 17:05] LABS: THYROID STIMULATING HORMONE 0.54 uIU/mL (0.36-3.74)
--- NOTE | 2020-06-18 17:50 | NUR ---
STATUS RESTING IN BED, NO COMPLAINTS. CALL LIGHT WITHIN REACH.
[2020-06-18 19:45] VITALS: BP 139/68
[2020-06-18] MEDS ORDERED: ATORVASTATIN CALCIUM 20 MG TABLET PO SCH (21:00)
[2020-06-18] MEDS ORDERED: ATORVASTATIN CALCIUM 10 MG TABLET PO SCH (21:00)
[2020-06-18 23:55] VITALS: BP 147/72
[2020-06-19] MEDS: IPRATROPIUM/ALBUTEROL SULFATE 3 ML SOLUTION IH SCH ×3 (00:11→11:16)
[2020-06-19] MEDS ORDERED: ZOLPIDEM TARTRATE 5 MG TAB PO ONE (00:45)
[2020-06-19] MEDS ORDERED: ZOLPIDEM TARTRATE 5 MG TAB ONE (00:52)
[2020-06-19 03:52] VITALS: BP 160/97
[2020-06-19 06:08] LABS: BASOPHILS % (AUTO) 0.2 % (0.0-5.0); HEMATOCRIT 27.6 % (42-54); LYMPHOCYTES % (AUTO) 12.8 % (21.0-51.0); MEAN CORPUSCULAR HEMOGLOBIN 32.4 pg (27.0-33.0); MEAN CORPUSCULAR HGB CONC 33.3 g/dL (32.0-36.0); MEAN CORPUSCULAR VOLUME 97.2 fL (79-99); MONOCYTES % (AUTO) 7.6 % (3.0-13.0); NEUTROPHILS % (AUTO) 79.1 % (40.0-77.0); PLATELET COUNT (AUTO) 243 K/uL (130-400); RED BLOOD CELL COUNT(AUTO) 2.84 MIL/uL (4.50-6.20); RED CELL DISTRIBUTION WIDTH 13.9 % (11.0-15.5); WHITE BLOOD COUNT (AUTO) 9.4 K/uL (4.8-10.8)
[2020-06-19 06:12] LABS: CREATININE 1.5 mg/dL (0.5-1.5); POTASSIUM 3.8 mmol/L (3.5-5.1)
[2020-06-19 07:57] VITALS: BP 151/83
[2020-06-19] MEDS: ADVAIR IH SCH (08:35)
[2020-06-19] MEDS: METOPROLOL TARTRATE 25 MG TAB PO SCH (08:36)
[2020-06-19] MEDS: ASPIRIN 81MG TAB.CHEW PO SCH (08:36)
[2020-06-19] MEDS: FAMOTIDINE 20MG TAB 20 MG TAB PO SCH (08:36)
[2020-06-19] MEDS: FUROSEMIDE 40 MG TABLET PO SCH (08:37)
[2020-06-19] MEDS: DOXYCYCLINE HYCLATE 100 MG TABLET PO SCH (08:37)
--- NOTE | 2020-06-19 08:45 | NUR ---
AM ASSESSMENT PT LAYING IN BED, HOB ELEVATED 30 DEGREES, RESTING. A/O X 3. NO SOB. NO DISTRESS NOTES. DENIES CHEST PAIN OR DISCOMFORT. DENIES PALPITATIONS. TELE: SR. DENIES N/V AND/OR DIARRHEA. UP W/ASSIST. INSTRUCTED TO CALL FOR ASSISTANCE. CALL RANDA W/IN REACH.
[2020-06-19] MEDS ORDERED: PREDNISONE 20 MG TABLET PO SCH (09:00)
--- NOTE | 2020-06-19 10:00 | NUR ---
DCP CM met with pt discussed dc plans. Pt is independent prior to admission, lives at home alone, daughter lives close by. Pt has a cane, nebulizer machine, walker, provider daily, goes to [facility] Mon[facility]Fri. Denies any other equipments/services. Feels safe to go back home, daughter able to assist with transportation and needs as necessary. DC plan to home once stable. CM to continue to follow up. Addendum: 06/19/20 at 1428 by BRITTANY PAT LVN CM Amended: Links added.
[2020-06-19] MEDS ORDERED: BENZONATATE 100 MG CAPSULE PO PRN (10:30)
[2020-06-19] MEDS ORDERED: IBUPROFEN 400 MG TABLET PO PRN (10:30)
[2020-06-19] MEDS ORDERED: DOXY100T2 PO (10:47)
--- NOTE | 2020-06-19 11:35 | NUR ---
DISCHARGE VERBAL & WRITTEN DISCHARGE INSTRUCTIONS REVIEWED & GIVEN TO PT IN IRISH. QUESTIONS ENCOURAGED & CLARIFIED. PROPER CARE & MGT OF ASTHMA REVIEWED. NEW PRESCRIBED MEDICATIONS REVIEWED. PRESCRIPTION FOR NEBULIZER GIVEN TO PT. SIGNED COPY OF PRESCRIPTION PLACED IN CHART. TELE EVAN REMOVED. IV DC'D @ THIS TIME. PT TO GATHER PERSONAL BELONGINGS. WILL NOTIFY STAFF WHEN READY TO BE TAKEN TO PRIVATE VEHICLE.
[2020-06-19 11:58] VITALS: BP 141/71
--- NOTE | 2020-06-19 12:10 | NUR ---
DISCHARGE PT TAKEN TO PRIVATE VEHICLE VIA WC BY Unruly BAGLEY PCP.
[2020-06-19] MEDS ORDERED: TIOTROPIUM BROMIDE 2.5 MCG IH SCH (21:00)
[2020-06-19] MEDS ORDERED: FAMOTIDINE 20MG TAB 20 MG TAB PO SCH (21:00)
[2020-06-19] MEDS ORDERED: METHIMAZOLE 10 MG TAB PO SCH (21:00)
[2020-06-20] MEDS ORDERED: LORATADINE 10 MG TABLET PO SCH (09:00)
[2020-06-20] MEDS ORDERED: LOSARTAN 50 MG TABLET PO SCH (09:00)
== END 2020-06-19 12:05 | disposition home or self-care (01) ==
LOC: EDH 17:27 → EDHIP 23:34 → 4DH 06-18 09:30 → UNDODISOB 06-19 12:05
PROVIDERS: ADMIT Internal Medicine; ATTEND Internal Medicine
DX: J45.901 Unspecified asthma with (acute) exacerbation (principal); R07.89 Other chest pain; E78.5 Hyperlipidemia, unspecified; I10 Essential (primary) hypertension; I20.8 Other forms of angina pectoris; E05.90 Thyrotoxicosis, unspecified without thyrotoxic crisis or storm; Z79.51 Long term (current) use of inhaled steroids; Z79.82 Long term (current) use of aspirin; Z79.899 Other long term (current) drug therapy
CPT/HCPCS: 36415 ×3; 71045; 80048 ×2; 80053; 80061; 81001; 82550; 83880; 84145; 84439; 84443; 84484 ×3; 85025 ×3; 85610; 85730; 93005 ×2; 94640 ×8; 94664; 99285; G0378 ×34; J2930 ×2

== ENCOUNTER 2022-02-14 10:10 | Emergency (ER) | payer MEDICARE, OTHER ==
[~2022-02-14] VITALS: Ht 162.6 cm; Wt 74.8 kg
[~2022-02-14 10:10] MED LIST changes: -BENZ-51 PO; +BENZ-70 PO; +DOXY100T2 PO; +METH-387 PO; -METH10TA7 PO
[2022-02-14] MEDS ORDERED: ACETAMINOPHEN 500 MG TABLET PO ONE (10:30)
[2022-02-14] MEDS ORDERED: ACET-66 PO (11:42)
[2022-02-14 13:10] VITALS: BP 138/70
== END 2022-02-14 13:12 | disposition home or self-care (01) ==
LOC: EDH 10:10
DX: M25.512 Pain in left shoulder (principal); M25.561 Pain in right knee; Z79.1 Long term (current) use of non-steroidal anti-inflammatories (NSAID); Z79.51 Long term (current) use of inhaled steroids; Z79.82 Long term (current) use of aspirin; Z79.899 Other long term (current) drug therapy; V49.49XA Driver injured in collision with other motor vehicles in traffic accident, initial encounter; Y93.89 Activity, other specified; Y92.89 Other specified places as the place of occurrence of the external cause; Y99.8 Other external cause status
CPT/HCPCS: 73030; 73562; 93005

== ENCOUNTER 2024-01-01 07:12 | Emergency (ER) | payer OTHER, MEDICARE ==
[~2024-01-01] VITALS: Ht 170.2 cm; Wt 72.6 kg
[~2024-01-01 07:12] MED LIST changes: +AMIO200T68 PO; +AMLO-257 PO; -ASPI-1005 PO; -ATOR10 PO; -BENZ-70 PO; +CARV25TA PO; +CYAN100010 PO; +DILT60TA3 PO; -DOXY100T2 PO; +FAMO20TA8 PO; -FAMO40TA7 PO; +FERSL PO; -FLUT8AER3 IH; +FURO20TA4 PO; -FURO40TA5 PO; -IBUP-2076 PO; +INSLAN SQ; -LORA10TA7 PO; -LOSA50TA64 PO; -TIOT4MIS5 IH; +[UNRECOGNIZED DRUG - CODE] IH; +[UNRECOGNIZED DRUG - CODE] IV; +[UNRECOGNIZED DRUG - CODE] IV; +[UNRECOGNIZED DRUG - CODE] PO
[2024-01-01 09:11] LABS: HEMATOCRIT 32.2 % (42-54); MEAN CORPUSCULAR HGB CONC 32.3 g/dL (32.0-36.0); MEAN CORPUSCULAR VOLUME 89.7 fL (79-99); NUCLEATED RED BLOOD CELLS 0.1 % (0.0-0.19); PLATELET COUNT (AUTO) 287 K/uL (130-400); RED BLOOD CELL COUNT(AUTO) 3.59 MIL/uL (4.50-6.20); RED CELL DISTRIBUTION WIDTH 14.7 % (11.0-15.5); WHITE BLOOD COUNT (AUTO) 13.7 K/uL (4.8-10.8)
[2024-01-01 09:31] LABS: BASOPHILS # (AUTO) 0.01 K/uL (0.00-0.20); BASOPHILS % (AUTO) 0.1 % (0.0-5.0); EOSINOPHILS # (AUTO) 0.01 K/uL (0.00-0.70); EOSINOPHILS % (AUTO) 0.1 % (0.0-8.0); IMMATURE GRANULOCYTE ABSOLUTE 0.13 K/uL (0-1); LYMPHOCYTES # (AUTO) 1.2 K/uL (1.0-4.8); LYMPHOCYTES % (AUTO) 9.1 % (21.0-51.0); MONOCYTES # (AUTO) 0.8 K/uL (0.1-1.0); MONOCYTES % (AUTO) 5.7 % (3.0-13.0); NEUTROPHILS # (AUTO) 11.5 K/uL (1.8-7.7)
[2024-01-01 09:45] LABS: CREATININE 1.4 mg/dL (0.5-1.3); POTASSIUM 4.7 mmol/L (3.5-5.1)
[2024-01-01 10:53] VITALS: BP 146/78; PULSE 94; RESP 22; O2SAT 96
[2024-01-01 10:58] LABS: APPEARANCE,URINE TURBID (CLEAR); BILIRUBIN,URINE NEGATIVE (NEGATIVE); COLOR,URINE YELLOW (YELLOW); GLUCOSE, URINE (UA) NEGATIVE (NEGATIVE); KETONES,URINE NEGATIVE (NEGATIVE); LEUKOCYTE ESTERASE ,URINE 500 Leu/uL (NEGATIVE); NITRATE,URINE NEGATIVE (NEGATIVE); OCCULT BLOOD,URINE LARGE (NEGATIVE); PH,URINE 5.5 (5.0-8.0); PROTEIN,URINE 200 mg/dL (NEGATIVE); UROBILINOGEN,URINE 0.2 mg/dL (0.2-1.0)
[2024-01-01 10:59] LABS: ADD UA MICROSCOPIC YES
[2024-01-01 11:07] LABS: BACTERIA,URINE FEW /HPF (None Seen); HYALINE CASTS, URINE 51-100 /LPF (0-1 /LPF); MUCUS,URINE FEW LPF (None Seen); OTHER CASTS, URINE 24 /LPF (None Seen); RBC,URINE TNTC /HPF (0-1); WBC CLUMP MANY /HPF (0-1); WBC,URINE TNTC /HPF (0-1)
== END 2024-01-01 11:55 | disposition home or self-care (01) ==
LOC: EDH 07:12
DX: Z43.0 Encounter for attention to tracheostomy (principal); I10 Essential (primary) hypertension; E78.00 Pure hypercholesterolemia, unspecified; E11.9 Type 2 diabetes mellitus without complications; J45.909 Unspecified asthma, uncomplicated; K21.9 Gastro-esophageal reflux disease without esophagitis; E03.9 Hypothyroidism, unspecified; Z79.4 Long term (current) use of insulin; Z79.899 Other long term (current) drug therapy
CPT/HCPCS: 36415; 71045; 80048; 81001; 83605; 84145; 85025; 87040; 87077; 87088; 87186; 93005

== ENCOUNTER 2024-01-17 22:55 | Emergency (ER) | payer OTHER, MEDICARE ==
[2024-01-18 03:25] VITALS: BP 134/60; PULSE 86; RESP 20; O2SAT 100
== END 2024-01-18 03:45 ==
LOC: EDH 22:55
DX: Z43.0 Encounter for attention to tracheostomy (principal); E03.9 Hypothyroidism, unspecified; E11.9 Type 2 diabetes mellitus without complications; E78.00 Pure hypercholesterolemia, unspecified; I10 Essential (primary) hypertension; I25.10 Atherosclerotic heart disease of native coronary artery without angina pectoris; K21.9 Gastro-esophageal reflux disease without esophagitis
CPT/HCPCS: 99282

== ENCOUNTER 2024-03-15 19:32 | Inpatient (IN) | payer OTHER, MEDICARE ==
[~2024-03-15] VITALS: Ht 160 cm; Wt 67.1 kg
[2024-03-15 19:46] LABS: ABG BASE EXCESS 8.1 mmol/L (-2.0-3.0); ABG HCO3 31.8 mmol/L (21.0-28.0); ABG OXYGEN SATURATION 94.7 % (94.0-98.0); ABG PCO2 41 mmHg (35-48); ABG PH 7.509 (7.350-7.450); CARBON MONOXIDE 0.3 % (0.5-1.5); DEVICE COMMENT JOSE RN RR; HHb 5.2; PO2, ARTERIAL BG 76.8 mmHg (83.0-108.0); VENT MODE, BG TRACH COLLAR (ROOM AIR)
[2024-03-15 19:56] VITALS: O2SAT 98
[2024-03-15 20:10] LABS: BASOPHILS # (AUTO) 0.05 K/uL (0.00-0.20); BASOPHILS % (AUTO) 0.4 % (0.0-5.0); EOSINOPHILS # (AUTO) 0.31 K/uL (0.00-0.70); EOSINOPHILS % (AUTO) 2.8 % (0.0-8.0); HEMATOCRIT 31.3 % (42-54); IMMATURE GRANULOCYTE ABSOLUTE 0.11 K/uL (0-1); LYMPHOCYTES # (AUTO) 1.8 K/uL (1.0-4.8); MEAN CORPUSCULAR HEMOGLOBIN 29.3 pg (27.0-33.0); MEAN CORPUSCULAR HGB CONC 28.1 g/dL (32.0-36.0); MEAN CORPUSCULAR VOLUME 104.3 fL (79-99); MONOCYTES # (AUTO) 0.4 K/uL (0.1-1.0); MONOCYTES % (AUTO) 3.4 % (3.0-13.0); NEUTROPHILS # (AUTO) 8.5 K/uL (1.8-7.7); NEUTROPHILS % (AUTO) 76.4 % (40.0-77.0); NUCLEATED RED BLOOD CELLS 0.6 % (0.0-0.19); PLATELET COUNT (AUTO) 315 K/uL (130-400); RED CELL DISTRIBUTION WIDTH 15.9 % (11.0-15.5); WHITE BLOOD COUNT (AUTO) 11.1 K/uL (4.8-10.8)
[2024-03-15 20:34] LABS: APPEARANCE,URINE CLOUDY (CLEAR); BILIRUBIN,URINE NEGATIVE (NEGATIVE); COLOR,URINE YELLOW (YELLOW); GLUCOSE, URINE (UA) NEGATIVE (NEGATIVE); KETONES,URINE NEGATIVE (NEGATIVE); LEUKOCYTE ESTERASE ,URINE LARGE Leu/uL (NEGATIVE); NITRATE,URINE NEGATIVE (NEGATIVE); OCCULT BLOOD,URINE SMALL (NEGATIVE); PROTEIN,URINE 100 mg/dL (NEGATIVE); UROBILINOGEN,URINE 0.2 mg/dL (0.2-1.0)
[2024-03-15 20:39] LABS: ADD UA MICROSCOPIC YES
[2024-03-15 20:47] LABS: BACTERIA,URINE Moderate /HPF (None Seen)
[2024-03-15 21:07] LABS: CREATININE 2.5 mg/dL (0.5-1.3); POTASSIUM 3.7 mmol/L (3.5-5.1)
[2024-03-15] MEDS: 0.9%NACL 1000ML 1,000 ML IV ONE (21:19)
[2024-03-15] MEDS: cefTRIAXone 1G VIAL IVPB STA (21:21)
[2024-03-15] MEDS ORDERED: DEXTROSE 50%-WATER 50 ML DISP.SYRIN IV PRN (23:00)
[2024-03-15] MEDS ORDERED: ONDANSETRON 4MG INJ IV PRN (23:00)
[2024-03-15] MEDS ORDERED: MAGNESIUM 2GM PREMIX 50ML 50 ML IV PRN (23:00)
[2024-03-15] MEDS ORDERED: ALBUTEROL 0.083% 2.5 MG/3 ML INH IH PRN (23:00)
[2024-03-15] MEDS ORDERED: GLUCAGON 1MG KIT 1 MG ML IM PRN (23:00)
[2024-03-16] VITALS (41 sets, daily range): BP systolic 80–128; BP diastolic 36–78; PULSE 67–103; RESP 10–48; TEMP 98.1–98.4; O2SAT 84–100
[2024-03-16] MEDS: ASPIRIN 300 MG SUPPOSITORY PR ONE (00:34)
[2024-03-16] MEDS: DEXTROSE 5 %-0.45 % NACL 1,000 ML IV SCH (00:34)
[2024-03-16 00:56] LABS: CREATININE 2.9 mg/dL (0.5-1.3); POTASSIUM 5.1 mmol/L (3.5-5.1)
[2024-03-16 01:16] LABS: RAPID GROUP A STREP negative (NEGATIVE)
[2024-03-16 01:24] LABS: INFLUENZA TYPE A Negative For Type A (NEGATIVE); INFLUENZA TYPE B Negative For Type B (NEGATIVE)
[2024-03-16 01:46] LABS: SARS-CoV-2, RNA, NAAT POSITIVE SARS CoV-2 (NEGATIVE)
[2024-03-16] MEDS: DEXTROSE 5%-WATER 1,000 ML IV SCH (05:20)
[2024-03-16] MEDS: ALBUTEROL 0.083% 2.5 MG/3 ML INH IH SCH (06:53)
[2024-03-16] MEDS: BUDESONIDE 0.5 MG/2 ML INH IH SCH (06:53)
[2024-03-16] MEDS: IpraTROPium 0.5 MG/2.5 ML INH IH SCH (06:53)
[2024-03-16 07:19] LABS: BASOPHILS # (AUTO) 0.04 K/uL (0.00-0.20); BASOPHILS % (AUTO) 0.4 % (0.0-5.0); EOSINOPHILS # (AUTO) 0.25 K/uL (0.00-0.70); EOSINOPHILS % (AUTO) 2.4 % (0.0-8.0); HEMATOCRIT 25.9 % (42-54); IMMATURE GRANULOCYTE ABSOLUTE 0.07 K/uL (0-1); LYMPHOCYTES # (AUTO) 1.8 K/uL (1.0-4.8); LYMPHOCYTES % (AUTO) 16.7 % (21.0-51.0); MEAN CORPUSCULAR HEMOGLOBIN 29.1 pg (27.0-33.0); MEAN CORPUSCULAR HGB CONC 27.8 g/dL (32.0-36.0); MEAN CORPUSCULAR VOLUME 104.9 fL (79-99); MONOCYTES # (AUTO) 0.4 K/uL (0.1-1.0); MONOCYTES % (AUTO) 3.3 % (3.0-13.0); NEUTROPHILS # (AUTO) 8.1 K/uL (1.8-7.7); NEUTROPHILS % (AUTO) 76.5 % (40.0-77.0); NUCLEATED RED BLOOD CELLS 0.3 % (0.0-0.19); PLATELET COUNT (AUTO) 299 K/uL (130-400); RED BLOOD CELL COUNT(AUTO) 2.47 MIL/uL (4.50-6.20); RED CELL DISTRIBUTION WIDTH 15.9 % (11.0-15.5); WHITE BLOOD COUNT (AUTO) 10.6 K/uL (4.8-10.8)
[2024-03-16] MEDS: INSULIN humuLIN R 100 UNIT/ML 3ML SQ SCH (07:30)
[2024-03-16] MEDS ORDERED: VANCOMYCIN PROTOCOL PER PHARMACY IV SCH (07:30)
[2024-03-16 07:46] LABS: MAGNESIUM 3.7 mg/dL (1.80-2.40); POTASSIUM 4.6 mmol/L (3.5-5.1); THYROID STIMULATING HORMONE 1.37 uIU/mL (0.36-3.74)
[2024-03-16] MEDS: VANCOMYCIN 1.75 GM/250 ML BAG 250 ML IV ONE (08:13)
[2024-03-16 08:29] LABS: ABG BASE EXCESS 4.1 mmol/L (-2.0-3.0); ABG HCO3 27.1 mmol/L (21.0-28.0); ABG OXYGEN SATURATION 93.9 % (94.0-98.0); ABG PCO2 36 mmHg (35-48); ABG PH 7.497 (7.350-7.450); PO2, ARTERIAL BG 62.8 mmHg (83.0-108.0); VENT MODE, BG TRACH HME (ROOM AIR)
[2024-03-16] MEDS ORDERED: FAMOTIDINE 20MG VIAL IV SCH (09:00)
[2024-03-16] MEDS: dexaMETHasone 4 MG TAB GT SCH (09:00)
[2024-03-16] MEDS ORDERED: cefTRIAXone 1G VIAL IVPB SCH (09:00)
[2024-03-16] MEDS ORDERED: cefTRIAXone 1G VIAL 1 GM in 0.9%NACL 50ML 50 ML IV SCH (09:00)
[2024-03-16] MEDS: PANTOPRAZOLE 40 MG/VIAL IVP SCH (10:50)
[2024-03-16] MEDS: ceFEPime HCL 2 GM VIAL IVPB SCH (10:50)
[2024-03-16 11:31] LABS: CREATININE 3.2 mg/dL (0.5-1.3); POTASSIUM 4.9 mmol/L (3.5-5.1)
[2024-03-16] MEDS: LACTATED RINGERS 1000ML IV ONE (11:43)
[2024-03-16] MEDS: NOREPINEPHRIN 4MG/NS 250ML 250 ML IV SCH (11:52)
[2024-03-16] MEDS ORDERED: BET120L MISC (18:28)
[2024-03-16] MEDS ORDERED: FOLI0.4T6 PO (18:28)
[2024-03-16] MEDS ORDERED: ACET650S14 RC (18:28)
[2024-03-16] MEDS ORDERED: MULT-1367 PO (18:28)
[2024-03-16] MEDS ORDERED: ONDA-104 PO (18:28)
[2024-03-16] MEDS ORDERED: BALS60OI TP (18:28)
[2024-03-16] MEDS ORDERED: ENOX40DI8 SQ (18:28)
[2024-03-16] MEDS ORDERED: LACT10SO9 PO (18:28)
[2024-03-16] MEDS ORDERED: IPRA3AMP24 IH (18:28)
[2024-03-16] MEDS ORDERED: PANT40SU PO (18:28)
[2024-03-16] MEDS ORDERED: ASCO500T19 PO (18:28)
[2024-03-16] MEDS ORDERED: DOCU100C33 PO (18:28)
[2024-03-16] MEDS: LACTATED RINGERS 1000ML IV SCH (19:38)
[2024-03-16 23:38] LABS: APPEARANCE,URINE CLOUDY (CLEAR); BILIRUBIN,URINE NEGATIVE (NEGATIVE); COLOR,URINE YELLOW (YELLOW); GLUCOSE, URINE (UA) 200 mg/dL (NEGATIVE); KETONES,URINE NEGATIVE (NEGATIVE); LEUKOCYTE ESTERASE ,URINE 500 Leu/uL (NEGATIVE); NITRATE,URINE NEGATIVE (NEGATIVE); OCCULT BLOOD,URINE MODERATE (NEGATIVE); PH,URINE 7.5 (5.0-8.0); PROTEIN,URINE 70 mg/dL (NEGATIVE); UROBILINOGEN,URINE 0.2 mg/dL (0.2-1.0)
[2024-03-16 23:44] LABS: CHLORIDE,URINE RANDOM 42 mmol/L (110-250); CREATININE,URINE RANDOM 24.17 mg/dL (30-135); POTASSIUM,URINE RANDOM 42 mmol/L (25-125); SODIUM,URINE RANDOM 51 mmol/l (40-220)
[2024-03-16 23:50] LABS: ADD UA MICROSCOPIC YES
[2024-03-16 23:51] LABS: BACTERIA,URINE None Seen /HPF (None Seen); WBC CLUMP TNTC /HPF (0-1); WBC,URINE TNTC /HPF (0-1)
[2024-03-17] VITALS (107 sets, daily range): BP systolic 106–151; BP diastolic 46–87; PULSE 66–85; RESP 5–44; TEMP 97–99.4; O2SAT 100
[2024-03-17 00:02] LABS: YEAST,URINE HYPHAE Rare /HPF (None Seen)
[2024-03-17 00:03] LABS: MUCUS,URINE Rare LPF (None Seen)
[2024-03-17 03:35] LABS: ABG BASE EXCESS 2.6 mmol/L (-2.0-3.0); ABG HCO3 26.7 mmol/L (21.0-28.0); ABG OXYGEN SATURATION 99.9 % (94.0-98.0); ABG PCO2 40 mmHg (35-48); ABG PH 7.445 (7.350-7.450); PO2, ARTERIAL BG 462.3 mmHg (83.0-108.0); VENT MODE, BG BIPAP 16,8 (ROOM AIR)
[2024-03-17 04:38] LABS: INR 1.05 (0.85-1.15); PROTHROMBIN TIME 11.3 SEC (9.6-11.6)
[2024-03-17 04:44] LABS: % IRON SATURATION 32.4 % (30-44)
[2024-03-17 05:15] LABS: ALANINE AMINOTRANSFERASE 25 U/L (12-78); ALBUMIN 1.7 g/dL (3.5-5.0); ASPARTATE AMINOTRANSFERASE 31 U/L (10-37); BILIRUBIN,TOTAL 0.5 mg/dL (0.2-1.0); CARBON DIOXIDE 29 mmol/L (21-32); CREATININE 3.3 mg/dL (0.5-1.3); FERRITIN 11109 ng/mL (30-400); GLOMERULAR FILTR. RATE CALC 19 mL/min (>90); GLUCOSE,RANDOM 285 mg/dL (70-105); PHOSPHORUS 5.9 mg/dL (2.5-4.9); POTASSIUM 4.7 mmol/L (3.5-5.1); THYROID STIMULATING HORMONE 2.59 uIU/mL (0.36-3.74); TOTAL PROTEIN, SERUM 6.2 g/dL (6.0-8.3); URIC ACID 9.8 mg/dL (2.6-7.2)
[2024-03-17 05:32] LABS: BASOPHILS # (AUTO) 0.04 K/uL (0.00-0.20); BASOPHILS % (AUTO) 0.3 % (0.0-5.0); EOSINOPHILS # (AUTO) 0.24 K/uL (0.00-0.70); EOSINOPHILS % (AUTO) 1.8 % (0.0-8.0); HEMATOCRIT 23.2 % (42-54); IMMATURE GRANULOCYTE ABSOLUTE 0.14 K/uL (0-1); LYMPHOCYTES # (AUTO) 1.5 K/uL (1.0-4.8); MEAN CORPUSCULAR HEMOGLOBIN 29.2 pg (27.0-33.0); MEAN CORPUSCULAR HGB CONC 28.4 g/dL (32.0-36.0); MEAN CORPUSCULAR VOLUME 102.7 fL (79-99); MONOCYTES # (AUTO) 0.4 K/uL (0.1-1.0); MONOCYTES % (AUTO) 3.2 % (3.0-13.0); NEUTROPHILS # (AUTO) 11.3 K/uL (1.8-7.7); NEUTROPHILS % (AUTO) 82.7 % (40.0-77.0); NUCLEATED RED BLOOD CELLS 0.3 % (0.0-0.19); PLATELET COUNT (AUTO) 246 K/uL (130-400); RED BLOOD CELL COUNT(AUTO) 2.26 MIL/uL (4.50-6.20); RED CELL DISTRIBUTION WIDTH 15.1 % (11.0-15.5); WHITE BLOOD COUNT (AUTO) 13.6 K/uL (4.8-10.8)
[2024-03-17 05:37] LABS: CHLORIDE 127 mmol/L (101-111); SODIUM SERUM 166 mmol/L (136-145); UREA NITROGEN, BLOOD 150 mg/dL (7-18)
[2024-03-17] MEDS: VANCOMYCIN 500MG+NS 100ML 100 ML IV SCH (08:58)
[2024-03-17] MEDS: FOLic ACID 1 MG TABLET PO SCH (09:02)
[2024-03-17] MEDS: THIAMINE HCL 100 MG TABLET PO SCH (09:02)
[2024-03-17] MEDS ORDERED: LACTULOSE 20 GM/30 ML UDCUP PO PRN (09:30)
[2024-03-17 17:32] LABS: CREATININE 2.8 mg/dL (0.5-1.3); POTASSIUM 4.9 mmol/L (3.5-5.1)
[2024-03-17 20:24] LABS: HEMATOCRIT 30.6 % (42-54)
[2024-03-17] MEDS: INSULIN humuLIN R 100 UNIT/ML 3ML SQ SCH (21:00)
[2024-03-17] MEDS: PANTOPRAZOLE 40 MG/VIAL IVP SCH (21:19)
[2024-03-17] MEDS: doCUSate SODIUM 100 MG CAP PO SCH (21:20)
[2024-03-17 22:03] LABS: CREATININE 2.9 mg/dL (0.5-1.3); POTASSIUM 4.3 mmol/L (3.5-5.1)
[2024-03-18] VITALS (46 sets, daily range): BP systolic 111–146; BP diastolic 42–72; PULSE 74–86; RESP 10–25; TEMP 97.5–98.5; O2SAT 100
[2024-03-18 04:04] LABS: HEMATOCRIT 27.3 % (42-54); MEAN CORPUSCULAR HEMOGLOBIN 28.7 pg (27.0-33.0); MEAN CORPUSCULAR HGB CONC 29.7 g/dL (32.0-36.0); MEAN CORPUSCULAR VOLUME 96.8 fL (79-99); NUCLEATED RED BLOOD CELLS 0.5 % (0.0-0.19); PLATELET COUNT (AUTO) 232 K/uL (130-400); RED BLOOD CELL COUNT(AUTO) 2.82 MIL/uL (4.50-6.20); RED CELL DISTRIBUTION WIDTH 17.5 % (11.0-15.5); WHITE BLOOD COUNT (AUTO) 7.8 K/uL (4.8-10.8)
[2024-03-18 04:48] LABS: LYMPHOCYTES % (MANUAL) 3 % (22-44); MONOCYTES % (MANUAL) 2 % (2-9); SEGMENTED NEUTROPHILS % 95 % (40-70); TOTAL CELLS COUNTED 100
[2024-03-18 04:49] LABS: MAN.DIFF COMMENT-IMPRESSION MANUAL DIFFERENTIAL; WBC MORPHOLOGY CONSISTENT W/DIFF
[2024-03-18 05:23] LABS: ALBUMIN 1.7 g/dL (3.5-5.0); BILIRUBIN,TOTAL 0.4 mg/dL (0.2-1.0); CREATININE 2.8 mg/dL (0.5-1.3); MAGNESIUM 3.2 mg/dL (1.80-2.40); PHOSPHORUS 5.7 mg/dL (2.5-4.9); POTASSIUM 4.6 mmol/L (3.5-5.1); TOTAL PROTEIN, SERUM 5.4 g/dL (6.0-8.3); URIC ACID 9.2 mg/dL (2.6-7.2)
[2024-03-18 09:17] LABS: CREATININE 2.6 mg/dL (0.5-1.3); POTASSIUM 3.9 mmol/L (3.5-5.1)
[2024-03-18] MEDS: ASCORBIC ACID 500 MG TAB PO SCH (09:41)
[2024-03-18] MEDS: MULTIVITAMIN TABLET PO SCH (09:41)
[2024-03-18] MEDS: BALSAM PERU/CASTOR OIL 60 GM TUBE TP SCH (09:44)
[2024-03-18] MEDS: PHARMACY COMMUNICATION MISC SCH (10:30)
[2024-03-18] MEDS ORDERED: COMPOUND IV REFRIGERATED 1 EACH IVSOLN MISC PRN (11:30)
[2024-03-18] MEDS: [UNRECOGNIZED DRUG - MIXTURE] IV SCH (12:47)
[2024-03-18] MEDS: BUMETANIDE 1 MG TAB PO SCH (12:47)
[2024-03-18 16:07] LABS: CREATININE 2.5 mg/dL (0.5-1.3); POTASSIUM 3.9 mmol/L (3.5-5.1)
[2024-03-18 21:16] LABS: CREATININE 2.4 mg/dL (0.5-1.3)
[2024-03-19] VITALS (34 sets, daily range): BP systolic 117–153; BP diastolic 50–83; PULSE 80–88; RESP 7–25; TEMP 97.9–98.4; O2SAT 28–100
[2024-03-19 03:26] LABS: ABG BASE EXCESS -1.2 mmol/L (-2.0-3.0); ABG HCO3 21.5 mmol/L (21.0-28.0); ABG OXYGEN SATURATION 99.3 % (94.0-98.0); ABG PCO2 31 mmHg (35-48); DEVICE COMMENT RR RN; PO2, ARTERIAL BG 180.5 mmHg (83.0-108.0); VENT MODE, BG BIPAP 16,8 (ROOM AIR)
[2024-03-19 05:03] LABS: INR 1.02 (0.85-1.15)
[2024-03-19 05:17] LABS: ALBUMIN 1.6 g/dL (3.5-5.0); BILIRUBIN,TOTAL 0.3 mg/dL (0.2-1.0); CREATININE 2.3 mg/dL (0.5-1.3); MAGNESIUM 2.7 mg/dL (1.80-2.40)
[2024-03-19 05:17] LABS: HEMATOCRIT 24.5 % (42-54); IMMATURE GRANULOCYTE ABSOLUTE 0.08 K/uL (0-1); LYMPHOCYTES # (AUTO) 0.5 K/uL (1.0-4.8); LYMPHOCYTES % (AUTO) 6.2 % (21.0-51.0); MEAN CORPUSCULAR HEMOGLOBIN 28.6 pg (27.0-33.0); MEAN CORPUSCULAR HGB CONC 30.6 g/dL (32.0-36.0); MEAN CORPUSCULAR VOLUME 93.5 fL (79-99); MONOCYTES # (AUTO) 0.3 K/uL (0.1-1.0); MONOCYTES % (AUTO) 3.9 % (3.0-13.0); NEUTROPHILS # (AUTO) 7.8 K/uL (1.8-7.7); NUCLEATED RED BLOOD CELLS 0.6 % (0.0-0.19); PLATELET COUNT (AUTO) 231 K/uL (130-400); RED BLOOD CELL COUNT(AUTO) 2.62 MIL/uL (4.50-6.20); RED CELL DISTRIBUTION WIDTH 15.9 % (11.0-15.5); WHITE BLOOD COUNT (AUTO) 8.8 K/uL (4.8-10.8)
[2024-03-19 05:57] LABS: HEMOGLOBIN A1C 6.1 % (4.0-6.0)
[2024-03-19] MEDS: INSULIN GLARgine 100 UNITS/ML 10 ML VIAL SQ SCH ×2 (12:45→21:58)
[2024-03-20] VITALS (25 sets, daily range): BP systolic 123–155; BP diastolic 57–82; PULSE 84–105; RESP 13–25; TEMP 97–98.3; O2SAT 98–100
[2024-03-20 04:31] LABS: HEMATOCRIT 22.8 % (42-54); MEAN CORPUSCULAR HEMOGLOBIN 28.7 pg (27.0-33.0); MEAN CORPUSCULAR HGB CONC 31.1 g/dL (32.0-36.0); MEAN CORPUSCULAR VOLUME 92.3 fL (79-99); NUCLEATED RED BLOOD CELLS 0.7 % (0.0-0.19); RED BLOOD CELL COUNT(AUTO) 2.47 MIL/uL (4.50-6.20); WHITE BLOOD COUNT (AUTO) 8.9 K/uL (4.8-10.8)
[2024-03-20 04:59] LABS: ALBUMIN 1.6 g/dL (3.5-5.0); BILIRUBIN,TOTAL 0.3 mg/dL (0.2-1.0); MAGNESIUM 2.5 mg/dL (1.80-2.40); POTASSIUM 3.7 mmol/L (3.5-5.1); TOTAL PROTEIN, SERUM 5.6 g/dL (6.0-8.3)
[2024-03-20] MEDS ORDERED: LACTATED RINGERS 1000ML 1,000 ML IV SCH (10:30)
[2024-03-21] VITALS (14 sets, daily range): BP systolic 120–166; BP diastolic 64–82; PULSE 80–106; RESP 18–20; TEMP 98.1–99.3; O2SAT 98–99
[2024-03-21] MEDS: POTASSIUM CHLORIDE 20MEQ/100ML 100 ML IV PRN (18:51)
[2024-03-21] MEDS: BALSAM PERU/CASTOR OIL 60 GM TUBE TP SCH (20:27)
[2024-03-22] VITALS (11 sets, daily range): BP systolic 145–173; BP diastolic 65–80; PULSE 83–118; RESP 18–22; TEMP 98.4–98.8; O2SAT 97–99
[2024-03-22] MEDS: hydrALAZine 20MG/ML VIAL IV PRN (04:45)
[2024-03-22 05:28] LABS: BASOPHILS # (AUTO) 0.02 K/uL (0.00-0.20); BASOPHILS % (AUTO) 0.2 % (0.0-5.0); EOSINOPHILS # (AUTO) 0.08 K/uL (0.00-0.70); EOSINOPHILS % (AUTO) 0.8 % (0.0-8.0); HEMATOCRIT 24.2 % (42-54); IMMATURE GRANULOCYTE ABSOLUTE 0.75 K/uL (0-1); LYMPHOCYTES # (AUTO) 1.6 K/uL (1.0-4.8); LYMPHOCYTES % (AUTO) 16.7 % (21.0-51.0); MEAN CORPUSCULAR HEMOGLOBIN 28.7 pg (27.0-33.0); MEAN CORPUSCULAR HGB CONC 30.6 g/dL (32.0-36.0); MEAN CORPUSCULAR VOLUME 93.8 fL (79-99); MONOCYTES # (AUTO) 0.5 K/uL (0.1-1.0); MONOCYTES % (AUTO) 5.3 % (3.0-13.0); NEUTROPHILS # (AUTO) 6.8 K/uL (1.8-7.7); NEUTROPHILS % (AUTO) 69.3 % (40.0-77.0); NUCLEATED RED BLOOD CELLS 0.5 % (0.0-0.19); PLATELET COUNT (AUTO) 261 K/uL (130-400); RED BLOOD CELL COUNT(AUTO) 2.58 MIL/uL (4.50-6.20); RED CELL DISTRIBUTION WIDTH 15.4 % (11.0-15.5); WHITE BLOOD COUNT (AUTO) 9.8 K/uL (4.8-10.8)
[2024-03-22 05:42] LABS: CREATININE 1.7 mg/dL (0.5-1.3); PHOSPHORUS 2.6 mg/dL (2.5-4.9); POTASSIUM 3.9 mmol/L (3.5-5.1)
[2024-03-22 15:15] LABS: CORTISOL PM 2.9 ug/dL (2.3-11.9)
[2024-03-22] MEDS: EPOETIN ALFA-EPBX (NON-ESRD) 10,000 UNIT/ML VIAL SQ STA (16:51)
[2024-03-22] MEDS ORDERED: LoSARTan 50 MG TABLET PO SCH (21:00)
[2024-03-28] MEDS ORDERED: EPOETIN ALFA-EPBX (NON-ESRD) 10,000 UNIT/ML VIAL SQ SCH (09:00)
== END 2024-03-22 18:13 | DRG 871 ==
LOC: EDH 19:32 → EDHIP 22:56 → 2CH 03-16 13:59 → 4CH 03-20 16:00
PROVIDERS: ADMIT Internal Medicine; ATTEND Internal Medicine
PROC: 02HV33Z Insertion of Infusion Device into Superior Vena Cava, Percutaneous Approach (ICD-10-PCS; 2024-03-16)
PROC: B548ZZA Ultrasonography of Superior Vena Cava, Guidance (ICD-10-PCS; 2024-03-16)
PROC: 5A09457 Assistance with Respiratory Ventilation, 24-96 Consecutive Hours, Continuous Positive Airway Pressure (ICD-10-PCS; 2024-03-16)
PROC: 30233N1 Transfusion of Nonautologous Red Blood Cells into Peripheral Vein, Percutaneous Approach (ICD-10-PCS; principal; 2024-03-17)
PROC: 5A09357 Assistance with Respiratory Ventilation, Less than 24 Consecutive Hours, Continuous Positive Airway Pressure (ICD-10-PCS; 2024-03-19)
PROC: 5A09357 Assistance with Respiratory Ventilation, Less than 24 Consecutive Hours, Continuous Positive Airway Pressure (ICD-10-PCS; 2024-03-20)
DX: A41.52 Sepsis due to Pseudomonas (principal); G93.41 Metabolic encephalopathy; R65.21 Severe sepsis with septic shock; U07.1 COVID-19; J12.82 Pneumonia due to coronavirus disease 2019; J96.21 Acute and chronic respiratory failure with hypoxia; J15.1 Pneumonia due to Pseudomonas; N30.00 Acute cystitis without hematuria; N17.9 Acute kidney failure, unspecified; E87.0 Hyperosmolality and hypernatremia; I24.89 Other forms of acute ischemic heart disease; G93.1 Anoxic brain damage, not elsewhere classified; D64.9 Anemia, unspecified; N18.9 Chronic kidney disease, unspecified; I12.9 Hypertensive chronic kidney disease with stage 1 through stage 4 chronic kidney disease, or unspecified chronic kidney disease; E78.5 Hyperlipidemia, unspecified; L89.610 Pressure ulcer of right heel, unstageable; L89.322 Pressure ulcer of left buttock, stage 2; E11.65 Type 2 diabetes mellitus with hyperglycemia; Z68.26 Body mass index [BMI] 26.0-26.9, adult; Z20.822 Contact with and (suspected) exposure to COVID-19; E11.22 Type 2 diabetes mellitus with diabetic chronic kidney disease; E03.9 Hypothyroidism, unspecified; E86.0 Dehydration; I51.7 Cardiomegaly; N31.9 Neuromuscular dysfunction of bladder, unspecified; R62.7 Adult failure to thrive; Z87.820 Personal history of traumatic brain injury; Z74.01 Bed confinement status; Z93.0 Tracheostomy status; Z83.3 Family history of diabetes mellitus; Z82.49 Family history of ischemic heart disease and other diseases of the circulatory system; Z93.1 Gastrostomy status
CPT/HCPCS: 31502; 36415; 36556; 36600; 70450; 71045; 71250; 76770; 80048; 80051; 80053; 81001; 82330; 82435; 82533; 82550; 82570; 82728; 82746; 82803; 82947; 82948; 83036; 83540; 83550; 83605; 83735; 83880; 83930; 83935; 84100; 84132; 84145; 84295; 84425; 84443; 84484; 84550; 85014; 85018; 85025; 85027; 85378; 85610; 86850; 86870; 86900; 86901; 86922; 87040; 87071; 87086; 87186; 87205; 87635; 87641; 87804; 87880; 93005; 93970; 94640; 94660; 94664; C1751; C1894; G0378; J0360; J0692; J0696; J0714; J1815; J2470; J3370; J3480; J3490; J8540; P9016; Q5106